=== PATIENT | female | born 1985 | race Caucasian/White ===

== ENCOUNTER 2021-10-20 11:39 | Emergency (ER) | payer BC ==
[2021-10-20] MEDS ORDERED: Cyclobenzaprine 10 MG Tab ONE (12:00)
[2021-10-20] MEDS: GI Cocktail Oral Solution 30 ML PO ONE (12:57)
== END 2021-10-20 13:20 | disposition home or self-care (01) ==
LOC: LB.ED 11:39
DX: R07.89 Other chest pain (principal); M54.6 Pain in thoracic spine; Z20.822 Contact with and (suspected) exposure to COVID-19
CPT/HCPCS: 36415; 80048; 84484; 85025; 87804; 87804-59; 93005; 93010; 99283; 99285-25; A9270-GY; U0002